=== PATIENT | female | born 1990 | race African-American/Black ===

== ENCOUNTER → 2023-12-22 | Emergency (ER) | payer OTHER ==
--- NOTE | 2023-12-22 20:08 | RAD REPORT ---
EXAM DESCRIPTION: Juan F Single View12/22/2023 7:49 pm CLINICAL HISTORY: Chest pain COMPARISON: none FINDINGS: The lungs appear clear of acute infiltrate. The heart is normal size IMPRESSION: No acute abnormalities displayed
[2023-12-22 20:17] LABS: Absolute Eosinophils 0.2 K/uL (0-0.5); Absolute Lymphocytes (CBC) 3.1 K/uL (0.7-4.9); Basophils % 0.5 % (0-1.3); Eosinophils % 2.2 % (0-4.4); Hematocrit 38.5 % (36.0-45.0); Lymphocytes % 33.1 % (15.3-44.8); MCV 100.8 fL (80-100); MPV 9.2 fL (7.6-11.3); Platelets 215 thou/uL (152-406); RBC Red Blood Cell Count 3.82 M/uL (3.86-4.86)
[2023-12-22 20:20] LABS: ALT/SGPT 39 U/L (13-56); AST/SGOT 24 U/L (15-37); Albumin 3.3 g/dL (3.4-5.0); Albumin/Globulin Ratio 0.8 (1.1-1.8); Alkaline Phosphatase 100 U/L (45-117); Anion Gap 8.2 mEq/L (5.0-15.0); BUN Blood Urea Nitrogen 15 mg/dL (7-18); Bicarbonate 27 mEq/L (21-32); Bilirubin Direct 0.1 mg/dL (0-0.2); Bilirubin Indirect, Calculated 0.2 mg/dL (0.2-0.8); Bilirubin Total 0.3 mg/dL (0.2-1.0); Globulin 3.9 g/dL (2.3-3.5); Glomerular Filtration Rate 85 ml/min (=/>90); Glucose Level 89 mg/dL (74-106); Magnesium 1.9 mg/dL (1.6-2.4); Potassium 4.2 mEq/L (3.5-5.1); Protein, Total 7.2 g/dL (6.4-8.2); Sodium Level 140 mEq/L (136-145)
[2023-12-22 20:21] LABS: Troponin High Sensitivity < 3.0 pg/mL (<58.9)
--- NOTE | 2023-12-22 21:12 | EDPHYS ---
Physician Documentation [facility] Name: Emily Zambrano Age: 33 yrs Sex: Female : 1990 Arrival Date: 12/22/2023 Time: 18:10 Bed 19 Private MD: ED Physician Robin Dowling HPI: 12/21 19:41 This 33 yrs old Black Female presents to ER via Ambulatory with complaints of Leg Pain, sb4 Shortness Of Breath, Palpitations. 19:41 Patient states that for the past couple days her back and bilateral legs have been sb4 hurting and she has also been experiencing intermittent chest palpitations associated with shortness of breath. She had a about 1 month ago and states that she is sitting/laying down a lot. She reports a history of a right bundle branch block but no other medical history. She does not smoke, she is not on control, she denies any personal or family history of blood clots. 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 - Social history:: Smoking status: Patient denies any tobacco usage or history of. ROS: 19:41 Constitutional: Negative for fever, chills, and weight loss, sb4 19:41 Cardiovascular: Positive for chest pain, palpitations, 19:41 Respiratory: Positive for shortness of breath, 19:41 MS/extremity: Positive for pain, of the right leg and left leg and back, 19:41 All other systems are negative, Exam: 19:41 Constitutional: This is a well developed, well nourished patient who is awake, alert, sb4 and in no acute distress. Head/Face: Normocephalic, atraumatic. Eyes: Extra-ocular motions intact. Periorbital areas with no swelling, redness, or edema. ENT: Mucous membranes moist. Cardiovascular: Regular rate and rhythm with a normal S1 and S2. Respiratory: Lungs have equal breath sounds bilaterally, clear to auscultation and percussion. No rales, rhonchi or wheezes noted. No increased work of breathing, no retractions or nasal flaring. Abdomen/GI: Soft, non-tender, no distension. Skin: Warm, dry with normal turgor. Normal color with no rashes, no lesions, and no evidence of cellulitis. MS/ Extremity: Pulses equal, no cyanosis. Neurovascular intact. Full, normal range of motion. Neuro: Awake and alert, GCS 15, oriented to person, place, time, and situation. Motor strength 5/5 in all extremities. Sensory grossly intact. Vital Signs: 18:24 BP 110 / 80; Pulse 84; Resp 16 S; Temp 97.9(TE); Pulse Ox 100% on R/A; Weight 73.94 kg as6 (R); Height 5 ft. 2 in. (R); Pain 8/10; 19:30 BP 113 / 81; Pulse 97; Resp 18; Pulse Ox 100% ; cp4 20:30 BP 110 / 76; Pulse 67; Resp 18; Pulse Ox 100% ; cp4 18:24 Body Mass Index 29.81 (73.94 kg, 157.48 cm) as6 18:24 Pain Scale: Adult as6 MDM: 18:18 Patient medically screened. sb4 19:41 Differential diagnosis: anxiety, hypokalemia, arrhythmia, pulmonary embolus, DVT. sb4 21:10 Data reviewed: vital signs, nurses notes, lab test result(s), EKG, radiologic studies, sb4 and as a result, I will discharge patient. Counseling: I had a detailed discussion with the patient and/or guardian regarding the historical points, exam findings, and any diagnostic results supporting the discharge/admit diagnosis, lab results, radiology results, to return to the emergency department if symptoms worsen or persist or if there are any questions or concerns that arise at home. 12/21 19:02 Order name: Basic Metabolic Panel; Complete Time: 20:22 sb4 12/21 19:02 Order name: CBC with Diff; Complete Time: 20:34 sb4 12/21 19:02 Order name: D-Dimer; Complete Time: 20:20 sb4 12/21 19:02 Order name: LFT's; Complete Time: 20:22 sb4 12/21 19:02 Order name: Magnesium; Complete Time: 20:22 sb4 12/21 19:02 Order name: Troponin HS; Complete Time: 20:22 sb4 12/21 19:02 Order name: XRAY Chest (1 view); Complete Time: 20:10 sb4 12/21 19:02 Order name: EKG; Complete Time: 19:02 sb4 12/21 19:02 Order name: Cardiac monitoring; Complete Time: 19:06 sb4 12/21 19:02 Order name: EKG - Nurse/Tech; Complete Time: 19:27 sb4 12/21 19:02 Order name: IV Saline Lock; Complete Time: 19:50 sb4 12/21 19:02 Order name: Labs collected and sent; Complete Time: 19:51 sb4 12/21 19:02 Order name: O2 Per Protocol; Complete Time: 19:05 sb4 12/21 19:02 Order name: O2 Sat Monitoring; Complete Time: 19:06 sb4 Administered Medications: No medications were administered Disposition Summary: 12/22/23 21:11 Discharge Ordered Notes: Location: Home sb4 Problem: new sb4 Symptoms: are unchanged sb4 Condition: Stable sb4 Diagnosis - Palpitations sb4 Followup: sb4 - With: Emergency Department - When: As needed - Reason: Trouble breathing, Worsening of condition Discharge Instructions: - Discharge Summary Sheet sb4 - Palpitations sb4 Forms: - Thank You Letter sb4 - Patient Portal Instructions sb4 - Leadership Thank You Letter sb4 Signatures: Dispatcher [employer] Cesario Rausch, RN RN as6 Krystal Pardo, GABI PABijan sb4
--- NOTE | 2023-12-22 21:12 | ER ---
Nurse's Notes [facility] Name: Emily Zambrano Age: 33 yrs Sex: Female : 1990 Arrival Date: 12/22/2023 Time: 18:10 Bed 19 Private MD: Diagnosis: Palpitations Presentation: 12/21 18:26 Chief complaint: Patient states: bilateral leg pain and back pain that started Saturday as6 and heart palpitations that started Saturday. pt also reports that she had a in November and noticed a small bulge coming from her vagina. Coronavirus screen: At this time, the client does not indicate any symptoms associated with coronavirus-19. Ebola Screen: No symptoms or risks identified at this time. Initial Sepsis Screen: Does the patient meet any 2 criteria? No. Patient's initial sepsis screen is negative. Does the patient have a suspected source of infection? No. Patient's initial sepsis screen is negative. Risk Assessment: Do you want to hurt yourself or someone else? Patient reports no desire to harm self or others. Onset of symptoms was December 20, 2023. 18:26 Acuity: MERRY 3 as6 18:26 Method Of Arrival: Ambulatory as6 Triage Assessment: 18:25 General: Appears in no apparent distress. comfortable, Behavior is calm, cooperative. as6 Pain: Complains of pain in back, right leg and left leg. 21:27 Respiratory: Reports shortness of breath at rest Onset: The symptoms/episode cp4 began/occurred today, the patient has moderate shortness of breath. 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 - Social history:: Smoking status: Patient denies any tobacco usage or history of. Screenin:51 [facility] ED Fall Risk Assessment (Adult) History of falling in the last 3 months, cp4 including since admission No falls in past 3 months (0 pts). [facility] ED Fall Risk Assessment (Adult) Confusion or Disorientation No (0 pts) Intoxicated or Sedated No (0 pts) Impaired Gait No (0 pts) Mobility Assist Device Used No (0 pt) Altered Elimination No (0 pt) Score/Fall Risk Level 0 - 2 = Low Risk Oriented to surroundings, Maintained a safe environment, Educated pt \T\ family on fall prevention, incl call for assistance when getting out of bed, Assessed \T\ reinforced patient's understanding of fall precautions, Hourly rounding (assess needs \T\ fall precautionary measures) done. Abuse screen: Denies threats or abuse. Nutritional screening: No deficits noted. Tuberculosis screening: No symptoms or risk factors identified. Assessment: 19:51 General: Appears in no apparent distress. Behavior is calm, cooperative, appropriate cp4 for age. Pain: Denies pain. Cardiovascular: Rhythm is sinus rhythm. Respiratory: Airway is patent Respiratory effort is even, unlabored, Breath sounds are clear bilaterally. Vital Signs: 18:24 BP 110 / 80; Pulse 84; Resp 16 S; Temp 97.9(TE); Pulse Ox 100% on R/A; Weight 73.94 kg as6 (R); Height 5 ft. 2 in. (R); Pain 8/10; 19:30 BP 113 / 81; Pulse 97; Resp 18; Pulse Ox 100% ; cp4 20:30 BP 110 / 76; Pulse 67; Resp 18; Pulse Ox 100% ; cp4 18:24 Body Mass Index 29.81 (73.94 kg, 157.48 cm) as6 18:24 Pain Scale: Adult as6 ED Course: 18:11 Patient arrived in ED. rg4 18:12 Krystal Pardo PA-C is PHCP. sb4 18:12 Robin Dowling MD is Attending Physician. sb4 18:24 Arm band placed on. as6 18:29 Triage completed. as6 18:31 Adri Holbrook is Primary Nurse. cp4 19:51 XRAY Chest (1 view) In Process Unspecified. EDMS 19:51 Bed in low position. Call light in reach. Side rails up X 1. cp4 19:51 No provider procedures requiring assistance completed. Inserted saline lock: 20 gauge cp4 in right antecubital area, using aseptic technique. Blood collected. 19:59 EKG done, by heavy line technician. reviewed by Krystal Pardo PA-C. oe 21:25 Provided Education on: palpitations. cp4 21:25 intact, bleeding controlled, No redness/swelling at site. Pressure dressing applied. cp4 Administered Medications: No medications were administered Medication: 19:51 VIS not applicable for this client. cp4 Outcome: 21:11 Discharge ordered by MD. sb4 21:25 Discharged to home ambulatory, cp4 21:25 Condition: stable 21:25 Discharge instructions given to patient, Instructed on discharge instructions, follow up and referral plans. 21:27 Patient left the ED. cp4 Signatures: Dispatcher [employer] Brittani Joshi rg4 Manolo Contreras Ashby, RN RN as6 Krystal Pardo, PA-C PA-C sb4 Adri Holbrook cp4 Corrections: (The following items were deleted from the chart) 20:10 19:58 EKG done, srikanth duke
[2023-12-22 21:58] VITALS: BP 110/76; TEMP 97.9; O2SAT 100
== END ==
LOC: ER 18:10
DX: R00.2 Palpitations (principal); M79.605 Pain in left leg; M79.604 Pain in right leg; R07.9 Chest pain, unspecified; R06.02 Shortness of breath
CPT/HCPCS: 36415; 71045; 80048; 80076; 83735; 84484; 85025; 85379; 99284